=== PATIENT | female | born 1935 | race Caucasian/White ===

== ENCOUNTER 2016-09-18 17:12 | Emergency (ER) | payer OTHER ==
[2016-09-18] MEDS ORDERED: SODIUM CHLORIDE 0.9% 1000ML 1,000 ML IV ONE ×2 (17:28→17:29)
[2016-09-18] MEDS ORDERED: SODIUM CHLORIDE 0.9% FLUSH 10 ML SOL IV PRN (17:28)
[2016-09-18] MEDS ORDERED: HYDRALAZINE HYDROCHLORIDE 20 MG/ML SOL IV PRN (17:34)
[2016-09-18] MEDS ORDERED: HYDRALAZINE HYDROCHLORIDE 20 MG/ML SOL ONE (17:37)
[2016-09-18 17:46] LABS: BASOPHILS % (AUTO) 1 % (0-3); EOSINOPHILS % (AUTO) 4 % (0-9); HEMATOCRIT 42 % (35-47); MEAN CORPUSCULAR HGB CONC 32.9 gm/dl (32.0-36.0); MONOCYTES % (AUTO) 6.5 % (0-12); NEUTROPHILS % (AUTO) 65.3 % (37-80)
[2016-09-18 17:48] LABS: MEAN CORPUSCULAR VOLUME 100 fL (81-99)
[2016-09-18 17:50] LABS: SODIUM 138 mMol/L (136-145)
[2016-09-18 17:56] VITALS: TEMP 97.4
[2016-09-18 18:03] LABS: ALBUMIN 3.4 gm/dl (3.4-5.0); ALT 22 IU/L (14-63); CALCIUM 9.9 mg/dl (8.5-10.1); GLOM FILT RATE 74 mL/min (>60)
[2016-09-18 18:57] LABS: APPEARANCE,URINE Clear; BILIRUBIN,URINE NEGATIVE (NEGATIVE); COLOR,URINE Yellow; GLUCOSE, URINE (UA) NEGATIVE (NEGATIVE); KETONES,URINE TRACE (NEGATIVE); LEUKOCYTE ESTERASE ,URINE NEGATIVE (NEGATIVE); NITRATE,URINE NEGATIVE (NEGATIVE); OCCULT BLOOD,URINE NEGATIVE (NEG-TRACE); PH,URINE 6.5; UROBILINOGEN,URINE 0.2 (0.2-1.0 EU)
[2016-09-18 19:01] LABS: RBC,URINE NEG (0-3AV/HPF)
[2016-09-18 19:02] LABS: WBC,URINE 0-1 (0-5AV/HPF)
[2016-09-18 20:03] VITALS: BP 120/50; PULSE 74; RESP 23; O2SAT 100
== END 2016-09-18 19:55 | DRG 641 ==
LOC: ED 17:12
DX: E86.0 Dehydration (principal)
CPT/HCPCS: 36415; 71010; 80053; 81001; 84484; 85025; 96365; 96374; 99284; 99285; J0360

== ENCOUNTER 2017-08-24 15:56 | Emergency (ER) | payer OTHER ==
[2017-08-24 16:21] VITALS: TEMP 98.8
[2017-08-24 16:57] VITALS: BP 135/73; PULSE 76; RESP 22; O2SAT 99
== END 2017-08-24 16:40 | DRG 605 ==
LOC: ED 15:56
DX: S01.80XA Unspecified open wound of other part of head, initial encounter (principal); S01.112A Laceration without foreign body of left eyelid and periocular area, initial encounter
CPT/HCPCS: 12013; 99282; 99284; G0168